=== PATIENT | female | born 1990 | race Caucasian/White ===

== ENCOUNTER 2016-12-16 02:16 | Inpatient (IN) | payer BC ==
[~2016-12-16] VITALS: Ht 162.6 cm; Wt 75.7 kg
--- NOTE | ~2016-12-16 | OR ---
PATIENT'S NAME: SHASHA CHAUOHIOHEALTH AGE: 26 Y [address] ROOM: [place] [id number] LOCATION: GOBS ADMIT DATE: 12/16/2016 OR/Procedure Report DISCHARGE DATE: FAMILY PHYSICIAN: Juany Robledo APRN ATTENDING PHYSICIAN: CRIS GUERRA SURGEON: Cris Guerra MD CONCRETE VIBRATOR OPERATOR: DATE OF PROCEDURE: 12/16/2016 PRE-DELIVERY DIAGNOSES: 1. Intrauterine at 41 weeks' and 0 days. 2. Active labor. 3. bradycardia. POST-DELIVERY DIAGNOSES: 1. Intrauterine at 41 weeks' and 0 days. 2. Active labor. 3. bradycardia. PROCEDURE PERFORMED: A low vacuum-assisted vaginal delivery with a midline episiotomy. ESTIMATED BLOOD LOSS: 400 mL. ANTIBIOTICS: Penicillin for her GBS positive status. ANESTHESIA: Anesthesia was with epidural. FINDINGS: Viable female with weight of 6 pounds 15 ounces and score of 7 and 8. Intact placenta with three-vessel cord. Midline episiotomy without extension which was repaired per routine and was hemostatic. SPECIMENS: Cord blood and cord pH. Placenta not sent for Pathology. COMPLICATIONS: None. DISPOSITION: The patient is stable. went to NICU for further observation. INDICATION FOR PROCEDURE: The patient is a 26-year-old G1, P0, who presented on the morning of 12/16/2016 with the complaint of contractions. She was 6 cm dilated and on presentation, was 41 weeks and 0 days. She progressed through labor to 8 cm and then had a somewhat protracted course then IV Pitocin was started. AROM was performed with light meconium fluid noted. She then progressed to complete. PATIENT'S NAME: SHASHA [facility]AUOH[facility] AGE: 26 Y [address] ROOM: [address] [id number] LOCATION: GO ADMIT DATE: 12/16/2016 OR/Procedure Report DISCHARGE DATE: FAMILY PHYSICIAN: Juany Robledo APRN ATTENDING PHYSICIAN: CRIS GUERRA DESCRIPTION OF PROCEDURE: The patient was placed in the dorsal lithotomy position in stirrups and began expulsive efforts. Fetus was noted to be slightly asynclitic and in the RAISSA presentation. With expulsive efforts, heart tones went down to the 60s to 70s for a prolonged period of time and the patient was recommended to proceed with a low vacuum-assisted delivery to facilitate delivery of the head. station was +2 at that point in time, and Ansari catheter had just recently been removed. Pelvis was felt to be adequate and estimated weight was 3300 g. The patient was prepped and draped in the usual sterile fashion. The vacuum was applied to the head at the point of maximal flexion and gentle downward traction was applied with maternal expulsive efforts. Pop-off occurred x2. As head crowned, vacuum was disengaged and removed. A midline episiotomy was performed to facilitate delivery of the head and expedite delivery. The head then delivered over the perineum. No nuchal cord was noted. head was allowed to restitute with the assistance of expulsive efforts and gentle downward and then upward traction. The shoulders were delivered followed by the remainder of the body. was delivered with a spontaneous cry. Cord was clamped and cut, and infant was handed off to the awaiting NICU nurses. Arterial cord pH and a cord blood were obtained. Pitocin was started per protocol. Gentle downward traction was placed on the umbilical cord and the placenta delivered spontaneously and intact. Cervix, vagina, and perineum were inspected. The midline episiotomy was repaired per routine with 2-0 Vicryl and was hemostatic. Total estimated blood loss was 400 mL. Infant was transferred to the NICU for further observation for respiratory status. All needle, sponge, and instrument counts were noted to be correct. MD ART JORDAN/que /[id number] d: 12/16/16 1456 t: 12/20/16 1251, OPERATIVE SUMMARY
[~2016-12-16 02:16] MED LIST: PRENATAL 1+1)(P1 TAB PO
[2016-12-16 02:54] LABS: BASOPHIL # 0.1 K/uL (0.0-0.2); BASOPHIL % 0.4 %; EOSINOPHIL # 0.2 K/uL (0.0-0.5); EOSINOPHIL % 1.7 %; HEMATOCRIT 38.9 % (33.0-46.0); HEMOGLOBIN 13.4 g/dL (11.0-15.0); IMMATURE GRANULOCYTE # 0.2 K/uL (0.0-0.3); IMMATURE GRANULOCYTE % 1.7 %; LYMPHOCYTE # 2.5 K/uL (0.8-4.0); LYMPHOCYTE % 20.4 %; MCH 30.2 pg (27.0-34.0); MCHC 34.4 gm/dL (32.0-36.5); MCV 87.6 fl (83.0-98.0); MONOCYTE # 0.9 K/uL (0.0-1.0); MONOCYTE % 7.5 %; NEUTROPHIL # (ANC) 8.3 K/uL (1.8-7.8); NEUTROPHIL % 68.3 %; NRBC % 0 /100WBC (0-0.00); PLATELET COUNT 163 K/uL (150-450); RBC 4.44 M/uL (3.50-5.00); RDW-CV 12.9 % (11.9-14.6); WBC 12.1 K/uL (4.0-11.0)
--- NOTE | 2016-12-16 05:46 | NUR ---
Last VS: T:97.7 P:96 R: 16 BP: 133/80 Pain ratin Last pain med: epidural Medicated at: Effective: FHT: 130's Dilatation: 8 Effacement %: 100 Station: 0 Significant event: PITOCIN STARTED @ 0545, NOTIFIED @ 0530 AND STATES SHE WILL BE UP IN A LITTLE BIT TO PERFORM AROM.
[2016-12-16 08:31] LABS: PCO2 49 mmHg (35-45)
[2016-12-16 08:33] LABS: PO2 34 mmHg (80-90)
--- NOTE | 2016-12-17 05:24 | NUR ---
VSS. VOIDING WELL, PASSING GAS. LAST HAD PERC/MOT AT 0245. FUNDUS FIRM, SMALL FLOW.
[2016-12-17 06:08] LABS: BASOPHIL # 0.1 K/uL (0.0-0.2); BASOPHIL % 0.4 %; EOSINOPHIL # 0.3 K/uL (0.0-0.5); EOSINOPHIL % 2.5 %; HEMATOCRIT 35.5 % (33.0-46.0); HEMOGLOBIN 12.1 g/dL (11.0-15.0); IMMATURE GRANULOCYTE # 0.2 K/uL (0.0-0.3); IMMATURE GRANULOCYTE % 1.6 %; LYMPHOCYTE # 2.2 K/uL (0.8-4.0); LYMPHOCYTE % 17.5 %; MCH 30.9 pg (27.0-34.0); MCHC 34.1 gm/dL (32.0-36.5); MCV 90.6 fl (83.0-98.0); MONOCYTE % 8.1 %; MPV 11.7 fl (9.4-12.4); NEUTROPHIL # (ANC) 8.9 K/uL (1.8-7.8); NEUTROPHIL % 69.9 %; NRBC % 0 /100WBC (0-0.00); PLATELET COUNT 147 K/uL (150-450); RBC 3.92 M/uL (3.50-5.00); RDW-CV 13.2 % (11.9-14.6); WBC 12.8 K/uL (4.0-11.0)
--- NOTE | 2016-12-18 05:59 | NUR ---
Last VS: T:98.1 P:94 R: 16 BP: 110/72 Pain ratin. Last pain med: Motrin Medicated at: 0200 Effective: Yes Breasts: Soft Nipples: Tender/Intact. Has Lanolin Fundus: 2 down, firm, midline Lochia: Small flow Epis/Perineum: ML epis approximated Voiding well: Yes Significant event: Doing well. Independent with cares
[2016-12-18] MEDS ORDERED: SURFAK240 MG PO (10:16)
[2016-12-18] MEDS ORDERED: MOTRIN800 MG PO (10:17)
[2016-12-18] MEDS ORDERED: DERMOPLAST SPRA56 GM TOP (10:17)
[2016-12-18] MEDS ORDERED: LANSINOH7 GM TOP (10:18)
[2016-12-18] MEDS ORDERED: PERCOCET 5-3251 EACH PO (10:18)
[2016-12-18] MEDS ORDERED: TUCKS1 EACH TOP (10:18)
== END 2016-12-18 11:50 | disposition disaster alternative care site (69) | DRG 775 ==
LOC: GOBM 02:16 → GOBS 02:16 → GOBM 02:17 → GOBS 02:44
PROVIDERS: ADMIT Obstetrics & Gynecology
DX: O80 Encounter for full-term uncomplicated delivery (principal); Z37.0 Single live birth; Z3A.41 41 weeks gestation of pregnancy
CPT/HCPCS: J2540; J2590; J3010; J7120